=== PATIENT | male | born 1985 | race African-American/Black ===

== ENCOUNTER 2021-09-24 16:45 | Emergency (ER) | payer SELFPAY ==
[2021-09-24] MEDS ORDERED: cefTRIAXone\\ROCEPHIN 500 MG VIAL ONE (17:32)
[2021-09-24] MEDS ORDERED: Sterile Water 10 ML ONE (17:36)
[2021-09-25 19:25] LABS: Chlam.trachomatis by PCR,Urine Not Detected (NotDetected)
== END 2021-09-24 17:45 | disposition home or self-care (01) ==
LOC: CSHERS 16:45
DX: Z20.2 Contact with and (suspected) exposure to infections with a predominantly sexual mode of transmission (principal); F17.210 Nicotine dependence, cigarettes, uncomplicated
CPT/HCPCS: 87491; 87591; 96372; 99283; J0696